=== PATIENT | female | born 1980 | race Caucasian/White ===

== ENCOUNTER 2017-07-20 08:27 | Inpatient (IN) | payer OTHER, BC ==
[~2017-07-20] VITALS: Ht 180.3 cm; Wt 82.7 kg
[2017-07-20] MEDS ORDERED: OMG1KC PO (08:46)
[2017-07-20] MEDS ORDERED: morphine INJ 10 MG/ML 1ML (SYR OR VIAL) IVP STA ×2 (09:14→09:28)
[2017-07-20] MEDS ORDERED: D5 1/2 NS W/KCL 20 MEQ/L 1,000 ML IV SCH (09:30)
--- NOTE | 2017-07-20 09:31 | Diagnostic Imaging Report ---
INDICATION: Fall. Time of exam: 9:18 AM 3 views of the right knee were obtained. The alignment is normal. The joint spaces are well maintained. The articular surfaces are smooth. No fracture, dislocation or effusion is detected. IMPRESSION: No acute bony abnormality is detected. Dictated by: Dictated on workstation # [id number]
--- NOTE | 2017-07-20 09:38 | Diagnostic Imaging Report ---
INDICATION: Fall. Time of exam: 9:17 AM 3 views of the right ankle were obtained. The ankle mortise is well maintained. The talar dome is smooth. No ankle fracture is seen. Fractures of the tibia and fibula more proximally near the junction of the mid and distal third again noted demonstrating lateral displacement and angulation of the distal fracture fragments. IMPRESSION: Tibial and fibular fractures. No ankle fracture is identified. Dictated by: Dictated on workstation # [id number]
--- NOTE | 2017-07-20 09:40 | Diagnostic Imaging Report ---
INDICATION: Fall. Time of exam: 9:14 AM Two views of the right tibia and fibula were obtained. Alignment at the knee and ankle appears normal. There are fractures of the distal tibia and fibula near the junctions of the mid and distal third. The distal tibial and distal fibular fracture fragments do show lateral displacement as well as lateral angulation. IMPRESSION: Distal tibial and fibular fractures with displacement and angulation, as described. Dictated by: Dictated on workstation # [id number]
--- NOTE | 2017-07-20 09:52 | Diagnostic Imaging Report ---
INDICATION: Leg fracture, preoperative assessment.. TECHNIQUE: Single view chest 9:44 AM. CORRELATION STUDY: None FINDINGS: The heart size, mediastinal configuration and pulmonary vascularity are within normal limits. The lungs are clear with no consolidating infiltrate. There is no significant effusion or pneumothorax. IMPRESSION: 1. Negative portable chest. Dictated by: Dictated on workstation # [id number]
--- NOTE | 2017-07-20 10:03 | ED Lower Extremity ---
General Chief Complaint: Lower Extremity Stated Complaint: CLOSED R TIB-FIB FRACTURE Nursing Triage Note: ARRIVED VIA EMS FROM WORK. PT FELL WHILE WALKING TO HER CAR. EMS HAS LEG IN SPLINT BUT STATES IT IS A OBVIOUS FX. PT RECIEVED FENTENYL 100MCG AND PAIN IS UNDER CONTROL AT THIS TIME. DENIES HITTING HER HEAD. Nursing Sepsis Screen: No Definite Risk Source: patient History of Present Illness Date Seen by Provider: Jul 20, 2017 Time Seen by Provider: 08:29 Initial Comments PT ARRIVES VIA EMS FROM PT'S WORKPLACE--HAS AIR SPLINT IN PLACE BY EMS PT STATES SHE WAS WALKING IN THE PARKING LOT AT WORK AND SLIPPED, AND LANDED ON RIGHT LEG DID NOT HIT HEAD AND NO LOSS OF CONSCIOUSNESS NO OTHER AREAS OF PAIN OR INJURY C/O SLIGHT TINGLING IN HER TOES EMS REPORT THAT LOWER RIGHT LEG WAS VERY DEFORMED AT SCENE, BUT ALIGNMENT HAS IMPROVED WITH SPLINT EMS GAVE FENTANYL 100 MCG PRIOR TO ARRIVAL. PT IS ON PHONE SHE IS BEING WHEELED INTO ER AND CONTINUES TO TALK ON PHONE AND DOES NOT EVEN ACKNOWLEDGE ANY STAFF, SHE CONTINUES TO TALK ON THE PHONE. EMS REPORT SHE HAS ALREADY MADE 6 PHONE CALLS. PT ATE CEREAL AT 0700 THIS AM Onset: just prior to arrival Allergies and Home Medications Allergies Coded Allergies: No Known Drug Allergies (Verified Allergy, Mild, 10/13/09) Home Medications [place] 3 Polyunsat Fatty Acids 1,000 Mg Cap, 1,000 MG PO, (Reported) Constitutional: no symptoms reported Musculoskeletal: see HPI Skin: no symptoms reported Psychiatric/Neurological: See HPI Past Ctuobex-Tppykh-Vsjbbg Hx Patient Social History Recent Foreign Travel: No Contact w/Someone Who Travel: No Recent Infectious Disease Expo: No Immunizations Up To Date Date of Influenza Vaccine: Mar 20, 2014 Surgeries History of Surgeries: Yes (C/S, LEFT BREAST LUMPECTOMY) Surgeries: Breast, Section Respiratory History of Respiratory Disorde: Yes (ASTHMA CHILD) Cardiovascular History of Cardiac Disorders: No Neurological History of Neurological Disord: No Genitourinary History of Genitourinary Disor: No Gastrointestinal History of Gastrointestinal Di: Yes (BLOOD IN STOOLS) Musculoskeletal History of Musculoskeletal Dis: No Endocrine History of Endocrine Disorders: No HEENT History of HEENT Disorders: No Cancer History of Cancer: No Psychosocial History of Psychiatric Problem: No Integumentary History of Skin or Integumenta: No Physical Exam Vital Signs Vital Signs - First Documented 07/20/17 08:27 Resp 18 B/P (MAP) 114/87 (96) Pulse Ox 100 Capillary Refill : Less Than 3 Seconds General Appearance: WD/WN, no apparent distress Neck: non-tender Cardiovascular: normal peripheral pulses, regular rate, rhythm, no murmur Respiratory: chest non-tender, normal breath sounds Gastrointestinal: soft Back: normal inspection Hips: bilateral hip non-tender Legs: left leg non-tender, right leg bone tenderness, right leg limited range of motion, right leg pain, right leg soft tissue tenderness, right leg other ( RIGHT MID TIB-FIB AREA) Knees: bilateral knee non-tender Ankles: bilateral ankle non-tender Feet: bilateral foot non-tender Neurologic/Tendon: normal sensation, normal motor functions, normal tendon functions Neurologic/Psychiatric: glass breaker II-XII nml as tested, no motor/sensory deficits, alert, normal mood/affect, oriented x 3 Skin: normal color, warm/dry, other (NO OPEN WOUNDS) Splinting and Joint Reduction : Immobilizers: 24 inch Knee Hand-Made Type: orthoglass Splint Application: Long Leg Progress/Results/Core Measures Results/Orders My Orders Orders - BRIDGETTE,SANDRA K DO Tibia/Fibula, Right, 2 Views (07/20/17 08:35) Knee, Right, 3 Views (07/20/17 08:35) Ankle, Right, 3 Views (07/20/17 08:35) Morphine Injection (Morphine Injection (07/20/17 09:14) Vital Signs/I&O Vital Sign - Last 12Hours 07/20/17 08:27 Resp 18 B/P (MAP) 114/87 (96) Pulse Ox 100 Blood Pressure Mean: 96 Progress Note : Progress Note NO DETERIORATION IN PT'S CONDITION DURING ER STAY. WAS ON PHONE FOR ENTIRE ER STAY, INCLUDING WHEN SHE HAD VISITORS IN ROOM. Diagnostic Imaging Comments XRAYS RIGHT TIB-FIB, ANKLE AND KNEE--FRACTURES OF MID TIBIA AND FIBULA,WITH DISPLACEMENT AND ANGULATION, PER RADIOLOGIST REPORT @ 0950 Reviewed: Reviewed by Me Departure Communication (Admissions) Progress Notes 0916--SPOKE WITH DR. Anup FONTANEZ, ORTHOPEDIC SURGEON SALES PROJECT ENGINEER, ACCEPTS PT FOR ADMIT. ADVISES POSTERIOR SPLINT AND KNEE IMMOBILIZER Impression Impression: Primary Impression: Closed fracture of right tibia and fibula Additional Impression: Status post fall Disposition: 09 ADMITTED INPATIENT Condition: Stable Admissions Decision to Admit Reason: Admit from ER (Trauma) Decision to Admit/Date: Jul 20, 2017 Time/Decision to Admit Time: 09:15 Departure-Patient Inst. Referrals: JEANNE WADE MD (PCP/Family) Primary Care Physician SANDRA ANGELES DO Jul 20, 2017 10:03
[2017-07-20 10:12] LABS: BILIRUBIN,URINE NEGATIVE (NEGATIVE); GLUCOSE, URINE (UA) NEGATIVE (NEGATIVE); KETONES,URINE NEGATIVE (NEGATIVE); LEUKOCYTE ESTERASE ,URINE NEGATIVE (NEGATIVE); NITRITE,URINE NEGATIVE (NEGATIVE); PH,URINE 7 (5-9); PROTEIN,URINE NEGATIVE (NEGATIVE); UROBILINOGEN,URINE NORMAL (NORMAL)
[2017-07-20 10:20] LABS: AMORPHOUS SEDIMENT,UR MOD AMOR PHOSPHATE /LPF; BACTERIA,URINE NEGATIVE /HPF; CLARITY,URINE CLEAR; COLOR,URINE YELLOW
[2017-07-20 10:58] LABS: BASOPHILS % (AUTO) 0 % (0-10); EOSINOPHILS % (AUTO) 0 % (0-10); HEMATOCRIT 39 % (35-52); HEMOGLOBIN 13.2 G/DL (11.5-16.0); LYMPHOCYTES # (AUTO) 0.8 X 10^3 (1.0-4.0); LYMPHOCYTES % (AUTO) 6 % (12-44); MEAN CORPUSCULAR HEMOGLOBIN 30 PG (25-34); MEAN CORPUSCULAR HGB CONC 34 G/DL (32-36); MEAN CORPUSCULAR VOLUME 87 FL (80-99); MEAN PLATELET VOLUME 12.5 FL (7.4-10.4); MONOCYTES # (AUTO) 0.5 X 10^3 (0.0-1.0); MONOCYTES % (AUTO) 4 % (0-12); NEUTROPHILS # (AUTO) 11.3 X 10^3 (1.8-7.8); NEUTROPHILS % (AUTO) 89 % (42-75); PLATELET COUNT 273 10^3/uL (130-400); RED BLOOD COUNT 4.47 10^6/uL (4.35-5.85); RED CELL DISTRIBUTION WIDTH 13.4 % (10.0-14.5); WHITE BLOOD COUNT 12.7 10^3/uL (4.3-11.0)
[2017-07-20 11:00] VITALS: BP 140/80
[2017-07-20 11:18] LABS: ALANINE AMINOTRANSFERASE 25 U/L (0-55); ALBUMIN 4.3 GM/DL (3.2-4.5); ALKALINE PHOSPHATASE 73 U/L (40-136); BILIRUBIN,TOTAL 0.3 MG/DL (0.1-1.0); BUN/CREATININE RATIO 26; CALCIUM 9.4 MG/DL (8.5-10.1); CARBON DIOXIDE 25 MMOL/L (21-32); CHLORIDE 104 MMOL/L (98-107); CREATININE SERUM 0.72 MG/DL (0.60-1.30); GFR ESTIMATED > 60; GLUCOSE 136 MG/DL (70-105); POTASSIUM 3.7 MMOL/L (3.6-5.0); SODIUM 137 MMOL/L (135-145); TOTAL PROTEIN 7.5 GM/DL (6.4-8.2)
[2017-07-20 11:27] LABS: BAND NEUTROPHILS 0 %; BASOPHILS % (MANUAL) 0 %; EOSINOPHILS % (MANUAL) 0 %; LYMPHOCYTES % (MANUAL) 3 %; MONOCYTES % (MANUAL) 3 %; NEUTROPHILS % (MANUAL) 94 %; RBC MORPH NORMAL
[2017-07-20] MEDS ORDERED: MULT-974 PO (11:31)
[2017-07-20] MEDS: morphine INJ 10 MG/ML 1ML (SYR OR VIAL) IVP PRN ×4 (12:11→16:00)
[2017-07-20] MEDS: D5 1/2 NS W/KCL 20 MEQ/L 1,000 ML IV SCH ×2 (12:34→18:17)
[2017-07-20] MEDS ORDERED: ASPI-789 PO (12:50)
[2017-07-20] MEDS ORDERED: CHOL100048 PO (12:50)
[2017-07-20] MEDS ORDERED: proPOfol 200 MG/20 ML (DIPRIVAN) VIAL IV ONE (15:06)
[2017-07-20] MEDS ORDERED: DEXAMETHASONE 10 MG/ML (DECADRON) 1 ML VIAL ONE (15:06)
[2017-07-20] MEDS ORDERED: fentaNYL INJECTION 100 MCG/2 ML AMP ONE (15:06)
[2017-07-20] MEDS ORDERED: MIDAZOLAM 2 MG/2 ML (VERSED) VIAL ONE (15:06)
[2017-07-20] MEDS ORDERED: LIDOCAINE PF 2% 5 ML (XYLOCAINE) VIAL ONE (15:06)
[2017-07-20] MEDS ORDERED: ONDANSETRON 4 MG/2 ML (SDV) Z0FRAN ONE (15:06)
[2017-07-20 16:00] VITALS: BP 123/77
[2017-07-20] MEDS ORDERED: morphine PF (DURAMORPH) 10 MG/10 ML AMP ONE (16:43)
[2017-07-20] MEDS ORDERED: D5 1/2 NS 1000 ML IV SOLUTION 1,000 ML IV SCH (16:45)
[2017-07-20] MEDS ORDERED: ONDANSETRON 4 MG/2 ML (SDV) Z0FRAN IVP PRN (16:45)
[2017-07-20] MEDS ORDERED: BACLOFEN 10 MG (LIORESAL) TAB PO PRN (16:45)
[2017-07-20] MEDS ORDERED: ceFAZolin 2 GM/50 ML NS 50 ML IV SCH (16:45)
[2017-07-20] MEDS ORDERED: KETOROLAC 30 MG/ML VIAL IVP PRN (16:45)
[2017-07-20] MEDS ORDERED: PROMETHAZINE INJ 25 MG/ML (PHENERGAN) AMP IVP PRN (16:45)
[2017-07-20] MEDS ORDERED: morphine INJ 10 MG/ML 1ML (SYR OR VIAL) IVP PRN (16:45)
[2017-07-20] MEDS ORDERED: BISACODYL 10 MG SUPP (DULCOLAX) PR PRN (16:45)
[2017-07-20] MEDS ORDERED: LACTATED RINGERS 1,000 ML IV PRN (16:52)
[2017-07-20] MEDS ORDERED: ceFAZolin 2 GM IV Premixed 50 ML IV SCH (17:15)
[2017-07-20] MEDS ORDERED: PROPOFOL INJECTION 100 ML IV ONE (17:24)
[2017-07-20] MEDS ORDERED: ceFAZolin 1,000 MG (ANCEF) VIAL IV ONE (17:45)
[2017-07-20] MEDS ORDERED: ceFAZolin 1,000 MG (ANCEF) VIAL ONE (19:32)
--- NOTE | 2017-07-20 19:51 | History & Physicial ---
History of Present Illness History of Present Illness Reason for visit/HPI Mrs. Sam is a very pleasant 37 y/o female that presents with CC of acute injury to her right leg secondary to slipping on some wet pavement. She subsequently had severe pain/swelling/gross deformity of her right leg and an inability to bear weight/ambulate on her Right leg. She presented to the [facility] ED for evaluation where imaging studies demonstrated a displaced fracture of the right tibia and fibula. Orthopedic service was consulted for definitive management of her injury. She denies other injuries. She has no other complaints. Date of Admission Jul 20, 2017 at 09:15 Date Seen by Provider: Jul 20, 2017 Time Seen by Provider: 16:30 I consulted on this patient on 07/20/17 19:45 Attending Physician Indira Fontanez DO Admitting Physician Hodan Francisco MD Consult Allergies and Home Medications Allergies Coded Allergies: No Known Drug Allergies (Verified , 07/20/17) Home Medications Aspirin/Acetaminophen/Caffeine 1 Each Tablet, 2 TAB PO DAILY PRN for MIGRAINE, ( Reported) Cholecalciferol (Vitamin D3) 1,000 Unit Capsule, 1,000 UNIT PO DAILY, (Reported) Multivitamin 1 Each Tablet, 1 TAB PO DAILY, (Reported) [place] 3 Polyunsat Fatty Acids 1,000 Mg Cap, 2,000 MG PO DAILY, (Reported) Past Gdmcouy-Ikexpc-Qkewhq Hx Patient Social History Alcohol Use: Denies Use Recreational Drug Use: No Smoking Status: Never a Smoker Physical Abuse Screen: No Sexual Abuse: No Recent Foreign Travel: No Contact w/other who traveled: No Recent Hopitalizations: No Recent Infectious Disease Expo: No Immunizations Up To Date Date of Influenza Vaccine: Mar 20, 2017 Seasonal Allergies Seasonal Allergies: No Surgeries Yes (C/S, LEFT BREAST LUMPECTOMY) Breast, Section Respiratory Yes (EXERCISE INDUCED ASTHMA CHILD) Cardiovascular No Neurological No Genitourinary No Gastrointestinal Yes (BLOOD IN STOOLS/COLONOSCOPY, CELIAC) Musculoskeletal No Endocrine History of Endocrine Disorders: No HEENT History of HEENT Disorders: No Cancer No Psychosocial History of Psychiatric Problem: No Integumentary History of Skin or Integumenta: No Family Medical History Family Hx: Diabetes mellitus 19 FATHER Hypertension 19 FATHER G8 SISTER Irritable bowel syndrome G8 SISTER Thyroid disease G8 SISTER Constitutional: no symptoms reported EENTM: no symptoms reported Respiratory: no symptoms reported Cardiovascular: no symptoms reported Gastrointestinal: no symptoms reported Genitourinary: no symptoms reported : No Musculoskeletal: other (Severe Right leg pain) Skin: no symptoms reported Psychiatric/Neurological: No Symptoms Reported All Other Systems Reviewed Negative Unless Noted: Yes Physical Exam Vital Signs Vital Signs - First Documented 07/20/17 07/20/17 07/20/17 08:27 10:50 11:00 Temp 97.6 Pulse 87 Resp 18 B/P (MAP) 114/87 (96) Pulse Ox 100 O2 Delivery Room Air Capillary Refill : Less Than 3 SecondsLess Than 3 Seconds General Appearance: No Apparent Distress, WD/WN Eyes: Bilateral Eye Normal Inspection, Bilateral Eye PERRL, Bilateral Eye EOMI HEENT: PERRL/EOMI, Normal ENT Inspection Neck: Full Range of Motion, Normal Inspection, Non Tender, Supple Respiratory: No Accessory Muscle Use, No Respiratory Distress Cardiovascular: Regular Rate, Rhythm, Normal Peripheral Pulses Gastrointestinal: No Organomegaly, Non Tender, Soft Back: Normal Inspection Extremity: Other (RLE: splint in place; moderate edema lower leg, all compartments soft/compressible, no increased pain with PROM ankle/digits, motor/ sensation grossly intact, foot well perfused; skin intact, no open wounds.) Neurologic/Psychiatric: Alert, Oriented x3, No Motor/Sensory Deficits, Normal Mood/Affect, 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 I explained to the patient that this is a very unstable injury that would benefit from operative stabilization. Recommended surgical plan will be IM nail right tibia. I discussed the treatment plan in detail with the patient and her family at bedside including the risks, benefits, potential complications and expected outcomes. All of their questions were answered to their satisfaction. The patient has given informed written consent to proceed as planned. Problems: Admission Diagnosis Displaced fracture right tibia/fibula, closed. Clinical Quality Measures DVT/VTE Risk/Contraindication: Risk Factor Score Per Nursin RFS Level Per Nursing on Admit: 4+=Very High INDIRA FONTANEZ DO Jul 20, 2017 19:51
--- NOTE | 2017-07-20 19:57 | Progress Note-Post Operative ---
Post-Operative Progess Note Surgeon (s)/Head Of Sales (s) Surgeon INDIRA FONTANEZ DO Head Of Sales: Joshua Guererro PA-C Pre-Operative Diagnosis Displaced, closed midshaft fracture right tibia/fibula Post-Operative Diagnosis Same Procedure & Operative Findings Date of Procedure 07/20/17 Procedure Performed/Findings Intramedullary nailing right tibia/unstable, completely displaced oblique midshaft fracture right tibia/fibula; stable ankle and knee joints. Anesthesia Type Spinal Estimated Blood Loss Estimated blood loss (mL): 50 mL Specimens/Packing Specimens Removed None INDIRA FONTANEZ DO Jul 20, 2017 19:57
[2017-07-20] MEDS ORDERED: ONDANSETRON 4 MG/2 ML (SDV) Z0FRAN IV PRN (20:00)
[2017-07-20] MEDS ORDERED: diphenhydrAMINE 50 MG/ML INJ (BENADRYL) IV PRN (20:00)
--- NOTE | 2017-07-20 20:20 | Diagnostic Imaging Report ---
INDICATION: ORIF of the right tib-fib IMPRESSION: 4 minutes and 7 seconds of fluoroscopy was used for ORIF of the tib-fib fracture. There is an intramedullary waylon seen in the tibia. There is satisfactory alignment. Dictated by: Dictated on workstation # [id number]
--- NOTE | 2017-07-20 20:44 | Diagnostic Imaging Report ---
INDICATION: Postop ORIF of the right tibia Two views of the right knee show an intramedullary waylon in the tibia. No fracture around the knee is seen. There is no unsuspected foreign body. IMPRESSION: Satisfactory postoperative right knee. Dictated by: Dictated on workstation # [id number]
[2017-07-20 20:48] VITALS: BP 133/81
[2017-07-20] MEDS: ASPIRIN E.C. 325 MG (ECOTRIN) TABLET PO SCH (22:43)
[2017-07-20] MEDS: ceFAZolin 2 GM IV Premixed 50 ML IV SCH (23:34)
[2017-07-21] VITALS: BP 122/75
[2017-07-21] MEDS: D5 1/2 NS W/KCL 20 MEQ/L 1,000 ML IV SCH ×2 (01:25→04:26)
[2017-07-21] MEDS: HYDROcodone/APAP 10 MG/325 MG (LORTAB) TAB PO PRN ×3 (03:41→13:11)
[2017-07-21 03:59] VITALS: BP 114/66
[2017-07-21] MEDS: ceFAZolin 2 GM IV Premixed 50 ML IV SCH (05:36)
[2017-07-21 06:23] LABS: BASOPHILS % (AUTO) 0 % (0-10); EOSINOPHILS % (AUTO) 0 % (0-10); HEMATOCRIT 34 % (35-52); HEMOGLOBIN 11.6 G/DL (11.5-16.0); LYMPHOCYTES # (AUTO) 0.6 X 10^3 (1.0-4.0); LYMPHOCYTES % (AUTO) 6 % (12-44); MEAN CORPUSCULAR HEMOGLOBIN 30 PG (25-34); MEAN CORPUSCULAR HGB CONC 34 G/DL (32-36); MEAN CORPUSCULAR VOLUME 87 FL (80-99); MEAN PLATELET VOLUME 12.6 FL (7.4-10.4); MONOCYTES # (AUTO) 0.5 X 10^3 (0.0-1.0); MONOCYTES % (AUTO) 5 % (0-12); NEUTROPHILS # (AUTO) 9.6 X 10^3 (1.8-7.8); NEUTROPHILS % (AUTO) 90 % (42-75); PLATELET COUNT 255 10^3/uL (130-400); RED CELL DISTRIBUTION WIDTH 13.1 % (10.0-14.5); WHITE BLOOD COUNT 10.7 10^3/uL (4.3-11.0)
--- NOTE | 2017-07-21 06:52 | Progress Note (SOAP) ---
Subjective Date Seen by Provider: Jul 21, 2017 Time Seen by Provider: 06:40 Subjective/Events-last exam Pt LINDY, resting comfortably, pain controlled, no overnight issues, no complaints. Objective Exam Vital Signs Date Time Temp Pulse Resp B/P (MAP) Pulse Ox O2 Delivery O2 Flow Rate FiO2 07/21/17 03:59 98.9 78 18 114/66 (82) 100 Nasal Cannula 2.00 07/21/17 00:00 99.6 90 18 122/75 (91) 99 Nasal Cannula 2.00 07/20/17 22:20 Nasal Cannula 2.00 07/20/17 21:00 Nasal Cannula 2.00 07/20/17 20:48 98.1 79 18 133/81 (98) 100 Room Air 07/20/17 16:00 98.3 78 18 123/77 (92) 99 Room Air 07/20/17 11:00 98.3 93 16 140/80 (100) Room Air 07/20/17 10:50 97.6 87 18 134/83 100 07/20/17 08:27 18 114/87 (96) 100 I & O 07/21/17 07:00 Intake Total 250 ml Output Total 3425 ml Balance -3175 ml Capillary Refill : Less Than 3 SecondsLess Than 3 Seconds General Appearance: No Apparent Distress, WD/WN HEENT: PERRL/EOMI Respiratory: No Accessory Muscle Use, No Respiratory Distress Cardiovascular: Regular Rate, Rhythm, Normal Peripheral Pulses Peripheral Pulses: 2+ Dorsalis Pedis (R), 2+ Left Dors-Pedis (L) Gastrointestinal: non tender, soft Extremity: Other (RLE: dressings c/d/i, all compartments soft, no increased pain with AROM ankle/digits, motor/sensation grossly intact, foot well perfused. ) Neurologic/Psychiatric: Alert, Oriented x3, No Motor/Sensory Deficits, Normal Mood/Affect, assisted living home director II-XII Norm as Tested Skin: Normal Color, Warm/Dry Results Lab Laboratory Tests 07/20/17 09:58: Urine Color YELLOW, Urine Clarity CLEAR, Urine pH 7, Urine Specific [place] 1.010L, Urine Protein NEGATIVE, Urine Glucose (UA) NEGATIVE, Urine Ketones NEGATIVE, Urine Nitrite NEGATIVE, Urine Bilirubin NEGATIVE, Urine Urobilinogen NORMAL, Urine Leukocyte Esterase NEGATIVE, Urine RBC (Auto) NEGATIVE, Urine RBC NONE, Urine WBC NONE, Urine Squamous Epithelial Cells NONE, Urine Crystals NONE , Urine Amorphous Sediment MOD TOMY PHOSPHATEH, Urine Bacteria NEGATIVE, Urine Casts NONE, Urine Mucus NEGATIVE, Urine Culture Indicated NO 07/20/17 10:44: White Blood Count 12.7H, Red Blood Count 4.47, Hemoglobin 13.2, Hematocrit 39, Mean Corpuscular Volume 87, Mean Corpuscular Hemoglobin 30, Mean Corpuscular Hemoglobin Concent 34, Red Cell Distribution Width 13.4, Platelet Count 273, Mean Platelet Volume 12.5H, Neutrophils (%) (Auto) 89H, Lymphocytes (%) (Auto) 6L, Monocytes (%) (Auto) 4, Eosinophils (%) (Auto) 0, Basophils (%) (Auto) 0, Neutrophils # (Auto) 11.3H, Lymphocytes # (Auto) 0.8L, Monocytes # (Auto) 0.5, Eosinophils # (Auto) 0.0, Basophils # (Auto) 0.0, Neutrophils % (Manual) 94, Lymphocytes % (Manual) 3, Monocytes % (Manual) 3, Eosinophils % (Manual) 0, Basophils % (Manual) 0, Band Neutrophils 0, Blood Morphology Comment NORMAL, Prothrombin Time 13.0, INR Comment 1.0, Activated Partial Thromboplast Time 27, Sodium Level 137, Potassium Level 3.7, Chloride Level 104, Carbon Dioxide Level 25, Anion Gap 8, Blood Urea Nitrogen 19H, Creatinine 0.72, Estimat Glomerular Filtration Rate > 60, BUN/Creatinine Ratio 26, Glucose Level 136H, Calcium Level 9.4, Total Bilirubin 0.3, Aspartate Amino Transf (AST/SGOT) 21, Alanine Aminotransferase (ALT/SGPT) 25, Alkaline Phosphatase 73, Total Protein 7.5, Albumin 4.3, Serum Test, Qualitative NEGATIVE 07/21/17 06:05: White Blood Count 10.7, Red Blood Count 3.90L, Hemoglobin 11.6, Hematocrit 34L, Mean Corpuscular Volume 87, Mean Corpuscular Hemoglobin 30, Mean Corpuscular Hemoglobin Concent 34, Red Cell Distribution Width 13.1, Platelet Count 255, Mean Platelet Volume 12.6H, Neutrophils (%) (Auto) 90H, Lymphocytes (%) (Auto) 6L, Monocytes (%) (Auto) 5, Eosinophils (%) (Auto) 0, Basophils (%) (Auto) 0, Neutrophils # (Auto) 9.6H, Lymphocytes # (Auto) 0.6L, Monocytes # (Auto) 0.5, Eosinophils # (Auto) 0.0, Basophils # (Auto) 0.0 Assessment/Plan Assessment/Plan Assess & Plan/Chief Complaint S/P IMN Right tibia, POD #1 Orthopedically stable PT/OT today for OOB and gait training, strict NWB RLE Ice/elevate Current pain control regimen VTE ISB D/C planning: d/c to home today after clears PT Instructions given Questions answered Clinical Quality Measures DVT/VTE Risk/Contraindication: Risk Factor Score Per Nursin RFS Level Per Nursing on Admit: 4+=Very High INDIRA FONTANEZ DO Jul 21, 2017 06:52
--- NOTE | 2017-07-21 06:57 | Discharge Inst-Surgical ---
Discharge Inst-Surgical Depart Medication/Instructions New, Converted or Re-Newed RX: RX on Chart Patient Instructions Percocet as prescribed for pain Take 325mg of enteric coated aspirin once daily for 2 weeks to help prevent blood clots. Consults/Follow Up Goal/Follow Up Appt.: Please follow-up with Dr. Fontanez at [address], [facility] in 2 weeks; please call the office to confirm you appointment. Activity Strict Non weight bearing right leg Walking Assistive Device: Crutches Activity Instructions: Avoid Stress to Incision Do Not Lift Over _ Pounds: 10 Elevate Extremity: Elevate Above Heart Driving Instructions: No Driving/Refer to Incentive Spirometry: Every 2 Hours While Awake Diet Discharge Diet: No Restrictions Skin/Wound Care Infection Signs and Symptoms: Increased Redness, Foul Odor of Wound, Increased Drainage, Increased Swelling, Temperature Above 101 F Wound Care Comment: Keep your dressings clean and dry, do not get wet; you may remove your dressings in 4-5 days and shower, no baths or soaking tubs. Bathing Instructions: Shower Operative Area Clean and Dry: Keep Incision Clean/Dry Stitches/[place]/Dermabond Dis: Dermabond Ice Pack: Ice On and Off Site INDIRA FONTANEZ DO Jul 21, 2017 06:57
[2017-07-21] MEDS ORDERED: HYDR-3820 PO (07:00)
[2017-07-21 07:06] LABS: ALANINE AMINOTRANSFERASE 21 U/L (0-55); ALBUMIN 3.8 GM/DL (3.2-4.5); ALKALINE PHOSPHATASE 64 U/L (40-136); BILIRUBIN,TOTAL 0.5 MG/DL (0.1-1.0); BUN/CREATININE RATIO 13; CALCIUM 8.9 MG/DL (8.5-10.1); CARBON DIOXIDE 22 MMOL/L (21-32); CHLORIDE 104 MMOL/L (98-107); CREATININE SERUM 0.71 MG/DL (0.60-1.30); GFR ESTIMATED > 60; GLUCOSE 137 MG/DL (70-105); POTASSIUM 3.8 MMOL/L (3.6-5.0); SODIUM 137 MMOL/L (135-145); TOTAL PROTEIN 6.8 GM/DL (6.4-8.2)
[2017-07-21 08:00] VITALS: BP 122/73
[2017-07-21] MEDS: ASPIRIN E.C. 325 MG (ECOTRIN) TABLET PO SCH (08:59)
--- NOTE | 2017-07-21 09:53 | Physical Therapy Evaluation ---
PT Evaluation-General Medical Diagnosis Admission Date Jul 20, 2017 at 09:15 Medical Diagnosis: closed tib/fib fracture Onset Date: Jul 20, 2017 Therapy Diagnosis Therapy Diagnosis: debility Height/Weight Height (Feet): 5 Height (Inches): 11.00 Weight (Pounds): 182 Weight (Ounces): 6.0 Precautions Precautions/Isolations: Fall Prevention, Standard Precautions Weight Bear Status Right Lower Extremity: Right Non Weight Bearing Left Lower Extremity: Left Weight Bearing/Tolerated Referral Physician: Jonathan Reason for Referral: Evaluation/Treatment Medical History Current History fall walking to car at parking lot at work Reviewed History: Yes Social History Home: Single Level Current Living Status: Spouse Entry Into Home: Ramp Prior/Core FIM Prior Level of Function Functional [place] Measure 0=Not Assessed/NA 4=Minimal Assistance 1=Total Assistance 5=Supervision or Setup 2=Maximal Assistance 6=Modified [place] 3=Moderate Assistance 7=Complete [place] Bed Mobility: 7 Transfers (B,C,W/C) (FIM): 7 Gait: 7 Locomotion: 7 PT Evaluation-Current Subjective Patient agrees to PT. Pain Numeric Pain Scale: 10-Worst Possible Pain Location: Right Location Body Site: Calf Pain Description: Pressure, Acute Comment: with meds issued Objective Patient Orientation: Normal For Age Problem Solving: Good ROM/Strength ROM Lower Extremities left LE WFL Strength Lower Extremities left LE WFL right LE NT Integumentary/Posture Integumentary refer to nursing notes Bowel Incontinence: No Bladder Incontinence: No Posture WFL Neuromuscular (Tone, Coordination, Reflexes) grossly intact Sensory Vision: Wears Glasses Hearing: Functional Sensation Right Lower Extremit: Intact Sensation Left Lower Extremity: Intact Transfers Functional [place] Measure 0=Not Assessed/NA 4=Minimal Assistance 1=Total Assistance 5=Supervision or Setup 2=Maximal Assistance 6=Modified [place] 3=Moderate Assistance 7=Complete [place] Transfers (B, C, W/C) (FIM): 4 Scootin Rollin Supine to/from Sit: 4 Sit to/from Stand: 4 assist for right LE (education with spouse on assisting right LE with him demonstrating technique appropriately) Gait Mode of Locomotion: Walk Anticipated Mode of Locomotion: Walk Gait (FIM): 1 Distance (FIM): 1=up to 49 ft Distance: 15' x 2/20' x 1 Gait Level of Assist: 4 Gait Assistive Device: Crutches Comments/Gait Description CGA for safety with education with spouse and use of gait belt to assist. Balance Sitting Static: Normal Sitting Dynamic: Normal Standing Static: Fair Standing Dynamic: Fair Assessment/Needs 37 y.o. female, received gait and transfer training and education with spouse on assisting patient with use of gait belt and patient using axillary crutches. Patient's home is handicapped accessible and patient and spouse both decline step training. Education with PT demonstration on stairs given. Both voiced understanding. PT to dismiss patient from services at this time. Rehab Potential: Good PT Plan Treatment/Plan Treatment Plan: Discontinue PT, goals met Treatment Plan: Gait, Transfers Treatment Duration: Jul 21, 2017 Frequency: 1 time per week Estimated Hrs Per Day: .5 hour per day Patient and/or Family Agrees t: Yes Safety Risks/Education Patient Education: Gait Training, Transfer Techniques, Steps Teaching Recipient: Patient, Significant Other Teaching Methods: Demonstration, Discussion Response to Teaching: Verbalize Understanding Discharge Recommendations Equpiment Recommendations-D/C: Crutches Time/GCodes Time In: 836 (917 (gait training)) Time Out: 850 (936 (end of training.)) Total Billed Treatment Time: 33 (total between treatments) Total Billed Treatment 2 visits EVM (14 min) GT (19 min) ASHLEY RUBIO PT Jul 21, 2017 09:53
[2017-07-21 12:00] VITALS: BP 111/69
--- NOTE | 2017-07-21 13:57 | Physical Therapy Daily Note ---
PT Daily Note-Current Subjective Patient requested gait training again due to fear. Pain Numeric Pain Scale: 8 Location: Right Location Body Site: Calf Pain Description: Acute Mental Status Patient Orientation: Normal For Age Transfers Functional [place] Measure 0=Not Assessed/NA 4=Minimal Assistance 1=Total Assistance 5=Supervision or Setup 2=Maximal Assistance 6=Modified [place] 3=Moderate Assistance 7=Complete IndependenceIRFPAI Quality Coding Scale 6 Independent with activity with or without an assistive device 5 Patient requires set up or clean up by helper. Patient completes activity by themselves 4 Supervision or touching assist (CGA). [place] provide cues , steadying assist 3 The helper provides less than half the effort to complete the activity 2 The helper provides more than half the effort to complete the activity 1 Dependent. The helper does all the effort to complete an activity 7 Patient refused to complete or attempt activity 9 The patient did not perform the activity before the current illness or injury 88 Not attempted due to Medical conditions or safety concerns Transfers (B, C, W/C) (FIM): 5 Scootin Sit to/from Stand: 5 Weight Bearing Right Lower Extremity: Right Non Weight Bearing Left Lower Extremity: Left Weight Bearing/Tolerated Gait Training Gait (FIM): 2 Distance (FIM): 8=427-46 ft Distance: 75' Gait Level of Assist: 5 Gait Persons Needed: 1 Gait Assistive Device: Crutches Gait training with axillary crutches and patient had her shoe on. Safe and functional. NWB right LE with compliance Assessment Current Status: Excellent Progress PT Plan Treatment/Plan Treatment Plan: Discontinue PT, goals met Treatment Plan: Gait, Transfers Treatment Duration: Jul 21, 2017 Frequency: 3 times per week Estimated Hrs Per Day: .5 hour per day Patient and/or Family Agrees t: Yes Safety Risks/Education Patient Education: Gait Training Teaching Recipient: Patient Teaching Methods: Demonstration Response to Teaching: Return Demonstration Discharge Recommendations Therapy D/C Recommendations: Home w/ Family Support Equpiment Recommendations-D/C: Crutches Time/GCodes Time In: 1337 Time Out: 1353 Total Billed Treatment Time: 16 Total Billed Treatment 1 visit GT 16 min ASHLEY RUBIO PT Jul 21, 2017 13:57
--- NOTE | 2017-07-21 15:09 | Anesthesia-Regional Post-Op ---
Regional Patient Condition Mental Status: Alert, Oriented x3 Circulation: Same as Pre-Op Headache: Absent Sensation: Full Recovery Motor Block: Absent Post Op Complications Complications None Follow Up Care/Instructions Patient Instructions None needed. Anesthesia/Patient Condition Patient is doing well, no complaints, stable vital signs, no apparent adverse anesthesia problems. No complications reported per nursing. KINJAL VALLES CRNA Jul 21, 2017 15:09
[2017-07-21] MEDS ORDERED: SENNA W/DOCUSATE (SENOKOT S) TABLET PO SCH (21:00)
--- NOTE | 2017-07-23 12:26 | OPERATIVE REPORT ---
DATE OF SERVICE: 07/20/2017 PREOPERATIVE DIAGNOSIS: Closed, displaced diaphyseal fracture, right tibia and fibula. POSTOPERATIVE DIAGNOSIS: Closed, displaced diaphyseal fracture, right tibia and fibula. PROCEDURE: Intramedullary nailing, closed, displaced midshaft diaphyseal fracture, right tibia. ATTENDING SURGEON: Dr. Indira Fontanez. MOVING PICTURE OPERATOR: Joshua Guerrero PA-C; Mr. Guerrero's assistance was necessary to hold retractors to retract important neurovascular structures, and to increase the efficiency and efficacy of the case, this case would not have been possible without an family readiness support assistant. IMPLANTS USED: [employer] Titanium Expert tibial nail size 375 mm in length x 9 mm diameter and a zero end cap. ANESTHESIA: Spinal. ESTIMATED BLOOD LOSS: 50 mL. COMPLICATIONS: None. SPECIMENS: None. DRAINS: None. BRIEF HISTORY/INDICATIONS: The patient is a very pleasant 37-year-old female sustained a twisting injury to her right leg on 07/20/2017, secondary to slipping on some wet ground. She subsequently had severe pain in the right leg in addition to significant swelling and gross deformity. As such, she presented to the [facility] ED for evaluation. Upon presentation, plain radiographs of the patient's right leg demonstrated completely displaced fractures of the right tibia and fibula. This was a closed injury. Her right lower extremity was stable, all compartments were soft and compressible, motor and sensory function was grossly intact and her right foot was well perfused. The patient did not sustain any other musculoskeletal injuries secondary to this fall. Orthopedics was consulted for definitive management of her injury. I had a detailed discussion with the patient preoperatively regarding the nature of her injury and need for surgical fixation. We did discuss treatment options in detail, which included the risks, benefits, potential complications and expected outcomes. Recommendation was for intramedullary nailing. Risks that were discussed included bleeding, infection, nonunion, malunion, potential damage to surrounding neurovascular structures, as well as potential need for secondary surgical procedures. After all of the patient's questions were answered to her satisfaction, she gave informed written consent to proceed as planned. PROCEDURE NOTE: After correctly identifying the patient as the patient in the preoperative holding area and after her right lower extremity was appropriately marked, she was transferred to the operating room. Once in the operating room, she had successful induction of spinal anesthesia and then she was transferred to a radiolucent OR table and placed in the supine position. All bony prominences were meticulously padded. A soft bump was placed underneath the ipsilateral right hip to maintain neutral rotation of the right lower extremity. A tourniquet was not used during this case. The right leg was then prepped and draped in routine sterile fashion. Prior to beginning the case, we completed an operating room timeout. All parties involved in the case and in agreement and verified appropriate infusion of prophylactic antibiotics. Using C-arm fluoroscopy, I made markings on the skin delineating the proximal and distal extent of the midshaft short oblique fracture of the tibia. I then made a small incision in the anterolateral aspect of the tibia directly over the fracture site. This incision was approximately 3 cm in length. The fracture site was exposed, a [id number] reduction tenaculum was placed on the fracture to achieve an anatomic reduction of the tibia fracture. A small incision over the mid portion of the patellar tendon was then made with a 10 blade scalpel. The patellar tendon was split longitudinally in line of its fibers to gain access to the knee joint and proximal tibia. The threaded guide pin was then placed in the proximal tibia under fluoroscopic guidance at the appropriate starting point for the nail. Once the guide pin was advanced distally to the appropriate depth, the opening reamer was used over the guide pin to make a harbor pilot hole in the proximal tibia for placement of the nail. Once the harbor pilot hole was made, a ball-tipped guidewire was then advanced in the intramedullary canal of the tibia past the fracture and into the center-center position of the ankle again completed under fluoroscopic guidance. We then began reaming sequentially with the standard intramedullary reamers until we were getting a very good chatter with a 10 mm reamer. We did try the 10.5 mm reamer and we were not able to advance it completely past the fracture site. As such, we decided to go with a 9 mm intramedullary nail. The nail was then advanced over the ball-tipped guidewire across the fracture site to the appropriate position distally into the center-center position of the ankle. The fracture of the tibia remained anatomically reduced during placement of the nail. Ball-tipped guidewire was then removed. The nail was then locked proximally with the external aiming arm with two medial to lateral locking bolts. We then locked the nail distally with two medial to lateral locking bolts in the distal portion of the nail using the C-arm fluoroscopic-guided perfect [place] technique. The rotation of the extremity and reduction of the fracture were confirmed fluoroscopically to be anatomic prior to locking the nail distally. This completed our fixation. The wounds were then irrigated with copious amounts of sterile saline followed by standard closure. The paratenon and patellar tendon were closed with 0 Vicryl, all wounds were closed with 2-0 Vicryl for the subcutaneous tissue and then 4-0 running Monocryl and Dermabond for the skin. The patient had sterile dressings applied. Of note, we did complete an intraoperative ligamentous exam of the right knee and right ankle, both joints were quite stable, no obvious clinical signs of ligamentous instability. All compartments of the right lower extremity remained soft and compressible during and at the conclusion of the case. All counts were correct at the end of the case. The patient was transferred to the PACU in stable condition and she tolerated the procedure well without complications. Job ID: [id number] DocumentID: [id number] Dictated Date: 07/23/2017 09:22:29 Drywall Stripper Date: 07/23/2017 12:25:30 Dictated By: INDIRA FONTANEZ [facility] MEDICAL CENTERDonna
--- NOTE | 2017-07-24 09:59 | Discharge Summary ---
Diagnosis/Chief Complaint Date of Admission Jul 20, 2017 at 09:15 Date of Discharge Jul 21, 2017 at 15:04 Discharge Date: Jul 21, 2017 Admission Diagnosis Admission Diagnosis Displaced fracture right tibia/fibula, closed. Discharge Diagnosis Displaced fracture right tibia/fibula Reason Hospital Visit Mrs. Sam is a very pleasant 37 y/o female that presents with CC of acute injury to her right leg secondary to slipping on some wet pavement. She subsequently had severe pain/swelling/gross deformity of her right leg and an inability to bear weight/ambulate on her Right leg. She presented to the [facility] ED for evaluation where imaging studies demonstrated a displaced fracture of the right tibia and fibula. Orthopedic service was consulted for definitive management of her injury. Discharge Summary Hospital Course Hospital Course The patient was admitted to the hospital on 07/20/2017 with a displaced fracture of the right tibia/fibula. After obtaining informed written consent for the planned operative procedure she was taken to the OR where she underwent successful IM nailing of the right tibia. She tolerated the procedure well without complications. She was transferred to the PACU and later the floor in stable condition. She received the appropriate antibiotic/VTE prophylaxis. She began PT/OT for gait training/mobilization on POD 1. Her restrictions included strict NWB RLE. She made good progress in PT/OT. Her pain remained controlled. Her RLE remained stable and NVI throughout her hospital stay. She completed her hospital course without adverse events. She was stable enough for discharge on and was discharged to home on that date. She was given a specific set of discharge instructions. All of her questions were addressed and answered to her satisfaction at the time of discharge. Labs Stable Procedures IM nailing Right tibia 07/20/2017. Discharge Physical Examination Allergies: Coded Allergies: gluten (Verified Allergy, Unknown, 07/21/17) Vitals & I&Os Vital Signs Date Time Temp Pulse Resp B/P (MAP) Pulse Ox O2 Delivery O2 Flow Rate FiO2 07/21/17 14:12 07/21/17 12:00 98.7 80 22 98 Room Air 07/21/17 03:59 2.00 General Appearance: Alert, Oriented X3, Cooperative, No Acute Distress HEENT: Atraumatic, PERRLA, EOMI, Mucous Memb Moist/[place] Respiratory: Normal Air Movement Cardiovascular: Regular Rate Abdominal: Soft, No Tenderness Extremities: No Clubbing, No Cyanosis, Normal Pulses, Other (RLE: dressings c/d /i, all compartments soft/compressible, motor/sensation grossly intact, foot well perfused.) Neuro: Strength at 5/5 X4 Ext, Sensation Intact, Cranial Nerves 3-12 NL Psych/Mental Status: Mental Status NL, Mood NL Discharge Home Medications Reviewed and agree with Discharge Medication list on patient's Discharge Instruction sheet Instructions to Patient/Family Please see electronic discharge instructions given to patient. Clinical Quality Measures DVT/VTE Risk/Contraindication: Risk Factor Score Per Nursin RFS Level Per Nursing on Admit: 4+=Very High INDIRA FONTANEZ DO Jul 24, 2017 09:59
== END 2017-07-21 15:04 | disposition home or self-care (01) | DRG 494 ==
LOC: EDUNIT# 08:27 → ER 08:28 → 4TH 09:15
PROVIDERS: ADMIT Orthopaedic Surgery Orthopaedic Trauma; ATTEND Orthopaedic Surgery Orthopaedic Trauma
PROC: 0QSG06Z Reposition Right Tibia with Intramedullary Internal Fixation Device, Open Approach (ICD-10-PCS; principal; 2017-07-20 17:00)
DX: S82.251A Displaced comminuted fracture of shaft of right tibia, initial encounter for closed fracture (principal); S82.451A Displaced comminuted fracture of shaft of right fibula, initial encounter for closed fracture; W01.0XXA Fall on same level from slipping, tripping and stumbling without subsequent striking against object, initial encounter; Y92.481 Parking lot as the place of occurrence of the external cause
CPT/HCPCS: 29505; 36415; 51702; 71045; 73560; 73562; 73590; 73610; 80053; 81000; 84703; 85007; 85025; 85027; 85610; 85730; 86850; 86900; 86901; 87081; 94664; 96361; 96374

== ENCOUNTER → 2018-05-26 | Outpatient (CLI) | payer BC ==
[~2018-05-26] MED LIST: ASPI-789 PO; CHOL100048 PO; HYDR-3820 PO; MULT-974 PO; OMG1KC PO
--- NOTE | 2018-05-26 10:59 | Diagnostic Imaging Report ---
EXAMINATION: CHEST (PA AND LATERAL) CLINICAL INDICATION: 38-year-old female, evaluation for tuberculosis prior to initiation of therapy for Crohn's disease. COMPARISON: July 20, 2017. FINDINGS: Heart size and mediastinal contours are unremarkable. There is no identified pneumothorax. There is no pleural effusion. There is no focal airspace consolidation. IMPRESSION: 1. No evidence of active tuberculosis or other acute cardiopulmonary abnormality. Dictated by: Dictated on workstation # [id number]
== END ==
LOC: LAB 09:58
PROVIDERS: ATTEND Internal Medicine Gastroenterology
DX: K50.119 Crohn's disease of large intestine with unspecified complications (principal)
CPT/HCPCS: 36415; 71046; 86480

== ENCOUNTER 2022-03-18 08:50 | Outpatient (CLI) | payer BC ==
[~2022-03-18] VITALS: Ht 182.9 cm; Wt 83.9 kg
[~2022-03-18 08:50] MED LIST changes: +ACHYD1T PO; -ASPI-789 PO; +ASPI1TAB23 PO; -HYDR-3820 PO
[2022-03-18 09:00] VITALS: BP 137/78
[2022-03-18 09:11] VITALS: BP 137/78
[2022-03-18] MEDS: BEBTELOVIMAB 175 MG/2 ML VIAL IV ONE ×2 (09:25→09:48)
[2022-03-18 10:00] VITALS: BP 107/72
== END 2022-03-18 10:02 | disposition home or self-care (01) ==
LOC: INFUSION 08:50
PROVIDERS: ATTEND Family Medicine
DX: U07.1 COVID-19 (principal)